=== PATIENT | female | born 1950 | race Caucasian/White ===

== ENCOUNTER 2017-09-04 22:25 | Inpatient (IN) | payer MEDICARE, OTHER ==
[2017-09-05] MEDS: SOD CHLORIDE 0.9% 1,000 ML IV ×4 (02:09→21:54)
[2017-09-05] MEDS: ONDANSETRON 4 MG INJ IV (02:09)
[2017-09-05] MEDS: LOPERAMIDE 2 MG CAP PO (02:09)
[2017-09-05 02:30] LABS: ADD MAN DIFF? NO
[2017-09-05 02:31] LABS: WHITE BLOOD COUNT 23.2 10^3/ul (4.8-10.8)
[2017-09-05 02:31] LABS: ABNORMAL IP MESSAGE 1; BASOPHIL # 0.1 10^3/ul (0.0-0.1); BASOPHILS % 0.3 % (0.0-2.0); HEMATOCRIT 32.9 % (37.0-47.0); HEMOGLOBIN 10.8 g/dl (12.0-16.0); LYMPHOCYTES % 4.2 % (15.0-51.0); MEAN CORPUSCULAR HEMOGLOBIN 26.3 pg (29.0-33.0); MEAN CORPUSCULAR HGB CONC 32.8 g/dl (32.0-37.0); MEAN PLATELET VOLUME 10.4 fl (7.4-10.4); MONOCYTE # 1.3 10^3/ul (0.3-0.9); MONOCYTES % 5.4 % (0.0-11.0); NEUTROPHIL # 20.8 10^3/ul (1.6-7.5); NEUTROPHILS % 89.7 % (39.0-77.0); PLATELET COUNT 300 10^3/UL (140-415); RED BLOOD COUNT 4.11 10^6/ul (4.20-5.40); RED CELL DISTRIBUTION WIDTH 17.6 % (11.5-14.5)
[2017-09-05 02:52] LABS: ALANINE AMINOTRANSFERASE 25 IU/L (13-69); ALBUMIN 4.3 g/dl (3.3-4.9); ALKALINE PHOSPHATASE 114 IU/L (42-121); ANION GAP 18 (8-16); ASPARTATE AMINO TRANSFERASE 37 IU/L (15-46); BILIRUBIN,INDIRECT 0.5 mg/dl (0-1.1); BILIRUBIN,TOTAL 0.5 mg/dl (0.2-1.3); BLOOD UREA NITROGEN 29 mg/dl (7-20); CALCIUM 9.4 mg/dl (8.4-10.2); CARBON DIOXIDE 24 mmol/L (21-31); CHLORIDE 103 mmol/L (97-110); CREATININE 1.25 mg/dl (0.44-1.00); GLUCOSE 135 mg/dl (70-220); LIPASE 73 U/L (23-300); POTASSIUM 3.9 mmol/L (3.5-5.1); SODIUM 141 mmol/L (135-144); TOTAL PROTEIN 8.2 g/dl (6.1-8.1)
[2017-09-05 03:22] LABS: POSITIVE DIFF @See below
[2017-09-05 03:25] LABS: URINE BLOOD (Dip) POC Trace-intact (NEGATIVE); URINE GLUCOSE (Dip) POC Negative (NEGATIVE); URINE KETONES (Dip) POC 1+ (NEGATIVE); URINE LEUKOCYTE EST (Dip) POC 1+ (NEGATIVE); URINE NITRITE (Dip) POC Negative (NEGATIVE); URINE TOTAL PROTEIN POC 3+ (NEGATIVE)
[2017-09-05] MEDS: metroNIDAZOLE 500 MG/NS (PMX) 100 ML IVPB (04:02)
[2017-09-05] MEDS: CIPROFLOXACIN 400MG/D5W 200 ML IVPB (05:00)
[2017-09-05 05:37] LABS: LACTIC ACID 0.8 mmol/L (0.5-2.0)
[2017-09-05] MEDS: AMLODIPINE 10 MG TAB PO ×2 (09:00→09:15)
[2017-09-05] MEDS ORDERED: ONDANSETRON 4 MG INJ IV (09:00)
[2017-09-05] MEDS: PIPER-TAZO 3.375 GM IV (PMX) 100 ML IVPB ×7 (09:14→21:55)
[2017-09-05] MEDS: PANTOPRAZOLE (EC) 40 MG TAB PO (09:14)
[2017-09-05] MEDS: morphine 2 MG INJ IV (09:14)
[2017-09-05] MEDS: FOLIC ACID 1 MG TAB PO (09:15)
[2017-09-05] MEDS: BISACODYL (EC) 5 MG TAB PO (17:23)
[2017-09-05] MEDS: MAGNESIUM CITRATE 300 ML BTL PO (17:23)
[2017-09-05] MEDS: POLYETHYLENE GLYCOL 3350 119 GM POWDER PO (18:51)
[2017-09-06] MEDS ORDERED: POLYETHYLENE GLYCOL 17 GM PACKET (05:04)
[2017-09-06 05:12] LABS: ADD MAN DIFF? NO
[2017-09-06 05:21] LABS: WHITE BLOOD COUNT 8.1 10^3/ul (4.8-10.8)
[2017-09-06 05:21] LABS: BASOPHIL # 0.1 10^3/ul (0.0-0.1); BASOPHILS % 0.9 % (0.0-2.0); EOSINOPHILS # 0.3 10^3/ul (0.0-0.5); EOSINOPHILS % 3.1 % (0.0-7.0); HEMATOCRIT 30.3 % (37.0-47.0); HEMOGLOBIN 9.9 g/dl (12.0-16.0); LYMPHOCYTES # 1.9 10^3/ul (0.8-2.9); LYMPHOCYTES % 23.2 % (15.0-51.0); MEAN CORPUSCULAR HEMOGLOBIN 26.5 pg (29.0-33.0); MEAN CORPUSCULAR HGB CONC 32.7 g/dl (32.0-37.0); MEAN PLATELET VOLUME 10.6 fl (7.4-10.4); MONOCYTE # 0.4 10^3/ul (0.3-0.9); MONOCYTES % 5.2 % (0.0-11.0); NEUTROPHIL # 5.5 10^3/ul (1.6-7.5); NEUTROPHILS % 67.5 % (39.0-77.0); PLATELET COUNT 225 10^3/UL (140-415); RED BLOOD COUNT 3.74 10^6/ul (4.20-5.40); RED CELL DISTRIBUTION WIDTH 17.7 % (11.5-14.5)
[2017-09-06 05:35] LABS: CHOL/HDL RATIO 3.2 RATIO
[2017-09-06 05:38] LABS: ALBUMIN/GLOBULIN RATIO 0.89
[2017-09-06] MEDS: PIPER-TAZO 3.375 GM IV (PMX) 100 ML IVPB ×4 (05:40→23:11)
[2017-09-06] MEDS: PANTOPRAZOLE (EC) 40 MG TAB PO (05:41)
[2017-09-06] MEDS: POLYETHYLENE GLYCOL 3350 119 GM POWDER PO (05:50)
[2017-09-06 05:59] LABS: CHOLESTEROL 135 mg/dl (100-200); HDL CHOLESTEROL 41 mg/dl (35-98); LDL CHOLESTEROL,CALCULATED 79 mg/dl; MAGNESIUM 2.2 mg/dl (1.7-2.5); TRIGLYCERIDES 77 mg/dl (0-149)
[2017-09-06 05:59] LABS: PHOSPHORUS 2.5 mg/dl (2.5-4.9)
[2017-09-06 06:01] LABS: ALANINE AMINOTRANSFERASE 26 IU/L (13-69); ALBUMIN 3.3 g/dl (3.3-4.9); ALKALINE PHOSPHATASE 76 IU/L (42-121); ANION GAP 12 (8-16); ASPARTATE AMINO TRANSFERASE 26 IU/L (15-46); BILIRUBIN,INDIRECT 0.3 mg/dl (0-1.1); BILIRUBIN,TOTAL 0.3 mg/dl (0.2-1.3); BLOOD UREA NITROGEN 15 mg/dl (7-20); CALCIUM 8.3 mg/dl (8.4-10.2); CARBON DIOXIDE 23 mmol/L (21-31); CHLORIDE 114 mmol/L (97-110); CREATININE 0.61 mg/dl (0.44-1.00); GLUCOSE 80 mg/dl (70-220); SODIUM 145 mmol/L (135-144)
[2017-09-06 07:25] LABS: HEMOGLOBIN A1C 5.4 % (0-5.9)
[2017-09-06] MEDS: FOLIC ACID 1 MG TAB PO (08:22)
[2017-09-06] MEDS: BISACODYL (EC) 5 MG TAB PO (08:22)
[2017-09-06] MEDS: AMLODIPINE 10 MG TAB PO (08:22)
[2017-09-06] MEDS: SOD CHLORIDE 0.9% 1,000 ML IV ×3 (10:42→23:11)
[2017-09-06 11:43] LABS: OCCULT BLOOD STOOL POSITIVE (NEGATIVE)
[2017-09-07] MEDS: PANTOPRAZOLE (EC) 40 MG TAB PO ×2 (05:25→05:34)
[2017-09-07] MEDS: PIPER-TAZO 3.375 GM IV (PMX) 100 ML IVPB ×4 (05:34→23:52)
[2017-09-07 05:54] LABS: ADD MAN DIFF? NO
[2017-09-07 06:00] LABS: WHITE BLOOD COUNT 6.1 10^3/ul (4.8-10.8)
[2017-09-07 06:00] LABS: BASOPHILS % 0.5 % (0.0-2.0); EOSINOPHILS # 0.2 10^3/ul (0.0-0.5); EOSINOPHILS % 2.9 % (0.0-7.0); HEMATOCRIT 30.4 % (37.0-47.0); HEMOGLOBIN 9.9 g/dl (12.0-16.0); LYMPHOCYTES # 1.5 10^3/ul (0.8-2.9); LYMPHOCYTES % 23.7 % (15.0-51.0); MEAN CORPUSCULAR HEMOGLOBIN 26.4 pg (29.0-33.0); MEAN CORPUSCULAR HGB CONC 32.6 g/dl (32.0-37.0); MEAN CORPUSCULAR VOLUME 81.1 fl (82.0-101.0); MEAN PLATELET VOLUME 10.6 fl (7.4-10.4); MONOCYTE # 0.3 10^3/ul (0.3-0.9); MONOCYTES % 5.2 % (0.0-11.0); NEUTROPHIL # 4.1 10^3/ul (1.6-7.5); NEUTROPHILS % 67.5 % (39.0-77.0); PLATELET COUNT 210 10^3/UL (140-415); RED BLOOD COUNT 3.75 10^6/ul (4.20-5.40); RED CELL DISTRIBUTION WIDTH 17.4 % (11.5-14.5)
[2017-09-07 06:41] LABS: ALBUMIN 3.4 g/dl (3.3-4.9); ANION GAP 15 (8-16); BLOOD UREA NITROGEN 6 mg/dl (7-20); CALCIUM 8.1 mg/dl (8.4-10.2); CARBON DIOXIDE 21 mmol/L (21-31); CHLORIDE 109 mmol/L (97-110); CREATININE 0.48 mg/dl (0.44-1.00); GLUCOSE 66 mg/dl (70-220); MAGNESIUM 1.8 mg/dl (1.7-2.5); POTASSIUM 3.5 mmol/L (3.5-5.1); SODIUM 141 mmol/L (135-144)
[2017-09-07] MEDS: FOLIC ACID 1 MG TAB PO (08:19)
[2017-09-07] MEDS: AMLODIPINE 10 MG TAB PO (08:19)
[2017-09-07] MEDS: SOD CHLORIDE 0.9% 1,000 ML IV ×3 (11:30→23:53)
[2017-09-07] MEDS ORDERED: PROPOFOL 20 ML (18:53)
[2017-09-07] MEDS ORDERED: FENTAnyl 50 MCG/ML VIAL (18:53)
[2017-09-07] MEDS: MESALAMINE (SR) 250 MG CAP PO (21:53)
[2017-09-07] MEDS: PENTOXIFYLLINE (SR) 400 MG TAB PO (21:53)
[2017-09-08] MEDS: PANTOPRAZOLE (EC) 40 MG TAB PO (05:42)
[2017-09-08] MEDS: PIPER-TAZO 3.375 GM IV (PMX) 100 ML IVPB ×4 (05:42→23:35)
[2017-09-08] MEDS: PENTOXIFYLLINE (SR) 400 MG TAB PO ×3 (08:20→20:32)
[2017-09-08] MEDS: MESALAMINE (SR) 250 MG CAP PO ×4 (08:20→20:31)
[2017-09-08] MEDS: FOLIC ACID 1 MG TAB PO (08:20)
[2017-09-08] MEDS: AMLODIPINE 10 MG TAB PO (08:21)
[2017-09-08] MEDS: SOD CHLORIDE 0.9% 1,000 ML IV ×2 (12:10→16:10)
[2017-09-09] MEDS: SOD CHLORIDE 0.9% 1,000 ML IV ×3 (03:00→17:49)
[2017-09-09] MEDS: PIPER-TAZO 3.375 GM IV (PMX) 100 ML IVPB ×3 (04:59→17:48)
[2017-09-09] MEDS: PANTOPRAZOLE (EC) 40 MG TAB PO (04:59)
[2017-09-09 06:35] LABS: ADD MAN DIFF? NO
[2017-09-09 06:44] LABS: BASOPHILS % 0.6 % (0.0-2.0); EOSINOPHILS # 0.2 10^3/ul (0.0-0.5); EOSINOPHILS % 3.7 % (0.0-7.0); HEMATOCRIT 34.4 % (37.0-47.0); HEMOGLOBIN 11.2 g/dl (12.0-16.0); LYMPHOCYTES # 1.7 10^3/ul (0.8-2.9); LYMPHOCYTES % 25.4 % (15.0-51.0); MEAN CORPUSCULAR HEMOGLOBIN 25.7 pg (29.0-33.0); MEAN CORPUSCULAR HGB CONC 32.6 g/dl (32.0-37.0); MEAN CORPUSCULAR VOLUME 79.1 fl (82.0-101.0); MONOCYTE # 0.4 10^3/ul (0.3-0.9); NEUTROPHIL # 4.2 10^3/ul (1.6-7.5); NEUTROPHILS % 64.1 % (39.0-77.0); PLATELET COUNT 239 10^3/UL (140-415); RED BLOOD COUNT 4.35 10^6/ul (4.20-5.40); RED CELL DISTRIBUTION WIDTH 16.3 % (11.5-14.5)
[2017-09-09 06:44] LABS: WHITE BLOOD COUNT 6.5 10^3/ul (4.8-10.8)
[2017-09-09 07:09] LABS: ANION GAP 15 (8-16); BLOOD UREA NITROGEN 3 mg/dl (7-20); CALCIUM 9.2 mg/dl (8.4-10.2); CARBON DIOXIDE 23 mmol/L (21-31); CHLORIDE 107 mmol/L (97-110); CREATININE 0.44 mg/dl (0.44-1.00); GLUCOSE 84 mg/dl (70-220); MAGNESIUM 1.5 mg/dl (1.7-2.5); PHOSPHORUS 2.4 mg/dl (2.5-4.9); POTASSIUM 3.4 mmol/L (3.5-5.1); SODIUM 142 mmol/L (135-144)
[2017-09-09] MEDS: FOLIC ACID 1 MG TAB PO (08:55)
[2017-09-09] MEDS: PENTOXIFYLLINE (SR) 400 MG TAB PO ×3 (08:55→20:26)
[2017-09-09] MEDS: AMLODIPINE 10 MG TAB PO (08:56)
[2017-09-09] MEDS: MESALAMINE (SR) 250 MG CAP PO ×4 (08:56→20:25)
[2017-09-09] MEDS: MAGNESIUM SULFATE 2 GM/50 ML 50 ML IVPB (14:16)
[2017-09-09] MEDS: ASPIRIN 81 MG TAB PO (14:21)
[2017-09-09] MEDS ORDERED: POTASSIUM CHLORIDE 50 ML IVPB (14:30)
[2017-09-09] MEDS: POTASSIUM CHLORIDE 40 MEQ in DEXTROSE 5% 250 ML IVPB (16:28)
[2017-09-10] MEDS: PIPER-TAZO 3.375 GM IV (PMX) 100 ML IVPB ×3 (00:04→12:21)
[2017-09-10] MEDS: PANTOPRAZOLE (EC) 40 MG TAB PO (05:42)
[2017-09-10 05:55] LABS: ADD MAN DIFF? NO
[2017-09-10 06:03] LABS: BASOPHILS % 0.7 % (0.0-2.0); EOSINOPHILS # 0.3 10^3/ul (0.0-0.5); EOSINOPHILS % 4.6 % (0.0-7.0); HEMATOCRIT 31.2 % (37.0-47.0); HEMOGLOBIN 10.3 g/dl (12.0-16.0); LYMPHOCYTES # 2.2 10^3/ul (0.8-2.9); LYMPHOCYTES % 35.9 % (15.0-51.0); MEAN CORPUSCULAR HEMOGLOBIN 26.1 pg (29.0-33.0); MEAN CORPUSCULAR VOLUME 79.2 fl (82.0-101.0); MEAN PLATELET VOLUME 9.7 fl (7.4-10.4); MONOCYTE # 0.5 10^3/ul (0.3-0.9); MONOCYTES % 7.6 % (0.0-11.0); NEUTROPHIL # 3.1 10^3/ul (1.6-7.5); PLATELET COUNT 220 10^3/UL (140-415); RED BLOOD COUNT 3.94 10^6/ul (4.20-5.40); RED CELL DISTRIBUTION WIDTH 16.6 % (11.5-14.5)
[2017-09-10 06:03] LABS: WHITE BLOOD COUNT 6.1 10^3/ul (4.8-10.8)
[2017-09-10 06:27] LABS: ANION GAP 10 (8-16); BLOOD UREA NITROGEN 5 mg/dl (7-20); CALCIUM 9.1 mg/dl (8.4-10.2); CARBON DIOXIDE 27 mmol/L (21-31); CHLORIDE 107 mmol/L (97-110); CREATININE 0.44 mg/dl (0.44-1.00); GLUCOSE 90 mg/dl (70-220); MAGNESIUM 1.7 mg/dl (1.7-2.5); PHOSPHORUS 2.9 mg/dl (2.5-4.9); POTASSIUM 3.6 mmol/L (3.5-5.1); SODIUM 140 mmol/L (135-144)
[2017-09-10] MEDS: SOD CHLORIDE 0.9% 1,000 ML IV (06:52)
[2017-09-10] MEDS: FOLIC ACID 1 MG TAB PO (08:39)
[2017-09-10] MEDS: MESALAMINE (SR) 250 MG CAP PO ×3 (08:39→17:31)
[2017-09-10] MEDS: PENTOXIFYLLINE (SR) 400 MG TAB PO ×2 (08:39→12:21)
[2017-09-10] MEDS: ASPIRIN 81 MG TAB PO (09:45)
[2017-09-10] MEDS: AMLODIPINE 10 MG TAB PO (09:45)
== END 2017-09-10 18:10 | disposition home or self-care (01) | DRG 394 ==
LOC: E/R 22:25 → PP2 09-05 04:20
PROVIDERS: Family Medicine
PROC: 0DBN8ZX Excision of Sigmoid Colon, Via Natural or Artificial Opening Endoscopic, Diagnostic (ICD-10-PCS; principal; 2017-09-07 17:00)
DX: K55.9 Vascular disorder of intestine, unspecified (principal); B48.8 Other specified mycoses; N39.0 Urinary tract infection, site not specified; K52.9 Noninfective gastroenteritis and colitis, unspecified; B96.20 Unspecified Escherichia coli [E. coli] as the cause of diseases classified elsewhere; M06.9 Rheumatoid arthritis, unspecified; M81.0 Age-related osteoporosis without current pathological fracture; R19.7 Diarrhea, unspecified
CPT/HCPCS: 36415; 74176; 80048; 80053; 80061; 80069; 81003; 82270; 82962; 83036; 83605; 83690; 83735; 84100; 85025; 87040; 87045; 87086; 88305; 96361; 96365; 96367; 96375; 99285-25